=== PATIENT | male | born 1960 | race Caucasian/White ===

== ENCOUNTER 2018-01-02 11:45 | Inpatient (IN) | payer MEDICARE, OTHER ==
[2018-01-21] MEDS ORDERED: RINGER'S SOLUTION,LACTATED 1,000 ML IV PRN (06:00)
[2018-01-21] MEDS ORDERED: ceFAZolin SODIUM 1 GM VIAL IV PRN (06:00)
[2018-01-21] MEDS ORDERED: TRANEXAMIC ACID 1,000 MG in NORMAL SALINE 100 ML IV PRN (06:00)
[2018-01-21] MEDS ORDERED: ROPIVACAINE HCL/PF 100 MG, EPINEPHrine 0.2 MG, KETOROLAC TROMETHAMINE 30 MG in NORMAL S... IJ PRN (06:00)
[2018-01-21] MEDS ORDERED: MORPHINE SULFATE 15 MG TABLET.SA PO PRN (06:00)
[2018-01-21] MEDS: RINGER'S SOLUTION,LACTATED 1,000 ML IV PRN ×3 (08:45→16:29)
--- NOTE | 2018-01-21 09:39 | ANES ---
Anesthesia Pre Procedure Eval Vitals/Labs: Last Vital Signs Temp 36.1 C 01/21/18 08:30 Pulse 89 01/21/18 08:30 Resp 16 01/21/18 08:30 BP 139/83 01/21/18 08:30 Pulse Ox 94 01/21/18 08:30 HOME MEDICATIONS gabapentin 300 mg capsule 300 mg PO TID cap 12/25/17 [Last Taken Unknown] levothyroxine 125 mcg capsule 125 mcg PO DAILY 12/25/17 [Last Taken Unknown] metformin 850 mg tablet 850 mg PO BID 12/25/17 [Last Taken Unknown] tamsulosin 0.4 mg capsule 0.4 mg PO DAILY 12/25/17 [Last Taken Unknown] Allergies/Adverse Reactions: Allergies Allergy/AdvReac Type Severity Reaction Status Date / Time No Known Allergies Allergy Verified 01/21/18 08:40 - Planned Procedure Planned Procedure: Left Total Hip Arthroplasty Medication List Reviewed:: Yes Allergies Verified: Yes Medical History (Last Reviewed 01/21/18 @ 09:38 by Jose Alberto Aguero CRNA) Diabetes (Chronic) Hypothyroidism Anxiety Onset Date: Unknown Arthritis Onset Date: Unknown Diabetes Onset Date: Unknown Fracture Onset Date: Unknown H/O total hip arthroplasty Onset Date: ~11/2003 Joint pain Onset Date: Unknown Pain Onset Date: Unknown Rheumatoid arthritis Onset Date: Unknown Surgical History (Last Reviewed 01/21/18 @ 09:38 by Jose Alberto Aguero CRNA) H/O colonoscopy Onset Date: Unknown H/O hernia repair Onset Date: ~2012 History of lung surgery Onset Date: ~2015 Family History (Last Reviewed 01/21/18 @ 09:38 by Jose Alberto Aguero CRNA) Daughter Alive and well Father No problems noted. Mother Alive and well Sister Alive and well Sister No problems noted. - Family Anesthesia History Family History:: no untoward family reactions to anesthesia, no familial bleeding tendencies, no family history of clotting disorders, no family history of premature - Airway/Neck/Teeth Within Normal Limits:: Yes Denture Type: Full- Upper Mallampatti Score: 2 Thyromental (T-M) distance: > 6 cm Mandibulo Hyoid distance: > 3 cm - Respiratory Respiratory: lungs clear Smoking Status: Current every day smoker Discussed smoking cessation including day of surgery: Yes Sleep Apnea currently treated: No Sleep Apnea by current assessment: No Discussed Risks/Treatment of ASIA: No - Cardiovascular Tolerates Activity: Good Heart Sounds: S1 & S2, Regular - Anesthesia Assessment and Plan ASA Class: PS, II Anesthesia Type Plan: Spinal
[2018-01-21] MEDS ORDERED: ONDANSETRON HCL/PF 2 MG/ML VIAL IV PRN (12:02)
[2018-01-21] MEDS ORDERED: MORPHINE SULFATE 2 MG/ML DISP.SYRIN IV PRN (12:02)
[2018-01-21] MEDS ORDERED: MAG HYDROX/ALUMINUM HYD/SIMETH 30 ML UDC PO PRN (12:02)
[2018-01-21] MEDS ORDERED: ZOLPIDEM TARTRATE 5 MG TABLET PO PRN (12:02)
[2018-01-21] MEDS ORDERED: diphenhydrAMINE HCL 50 MG/ML VIAL IV PRN (12:02)
[2018-01-21] MEDS ORDERED: ACETAMINOPHEN 500 MG TABLET PO PRN (12:02)
[2018-01-21] MEDS ORDERED: MAGNESIUM HYDROXIDE 30 ML UDC PO PRN (12:02)
--- NOTE | 2018-01-21 12:02 | OR ---
Operative Report - Dictated Report Narrative: Date: 01/21/2018 Preoperative diagnosis: Left hip degenerative joint disease. Postoperative diagnosis: Left hip degenerative joint disease. Procedure: Left Total hip arthroplasty. Surgeon: Jony Drummond M.D. [place] Luggage: Parish Martin PA-C Anesthesia: Spinal and local periarticular joint injection. Complications: None Specimens: Bone for disposal. Estimated blood loss: 200 milliliters. Retained implants: Depuy [place] size 5 femoral stem standard offset. Size 60 millimeter outside diameter 3-hole [place] Gription acetabular cup. 60 millimeter outside by 40 millimeter inside diameter highly cross-linked acetabular liner. 40 millimeter diameter +5 millimeter ceramic femoral head. Cancellous 6.5mm screw 35 millimeter length Indications: Mr. Au is a 57-year-old gentleman who has had long-standing left hip pain and arthrosis. This patient was followed in my clinic for period of time with significant complaints of left hip pain consistent with arthritic changes. He failed conservative measures including but not limited to activity modification, passage of time, medications, and other conservative measures. Patient wished to proceed with surgical treatment. The risks, benefits, and alternatives were discussed in clinic. The risks of , blood clots, bleeding, infection, nerve/tendon blood vessel/ injury, malposition of components, dislocation and/or instability of joint, intraoperative fracture, postoperative limited range of motion, persistent pain, failure of components, and need for additional procedures. Patient wished to proceed. Consent was obtained after answering all questions. Procedure: After marking the correct extremity on the floor, the patient was taken to the operating room. A timeout was performed. IV antibiotics consisting of Ancef were administered prior to the procedure. A spinal anesthetic was induced by anesthesia. A Gong catheter was inserted. The patient was then transitioned to a lateral position on a well-padded pegboard. An axillary roll was placed. The head was in neutral position. The non- operative down leg was well-padded with SCD and FERNANDO hose in place. The arms were supported and padded to protect from any undue pressure on the bony prominences and nerves. A well-padded anterior and posterior pelvic and chest posts were secured in order to maintain a stable position of the pelvis. This was placed so that the pelvis was perpendicular to the floor. The body was in line with the pelvis. Once it was felt that we had protected all the bony prominences and the patient was well secured with a safety belt as well, the leg was pre-scrubbed with alcohol, prepped and draped in a standard sterile fashion. A standard anterior lateral hip incision was marked out over the greater trochanter. Ioban drapes were then placed. The skin incision was then made. Sharp dissection with a scalpel utilizing cautery for hemostasis was carried out down to the gluteus and iliotibial band fascia. This was split in line with the skin incision. The greater trochanter bursa was excised. The anterior and posterior margins of the abductor tendon were identified. The anterior 1/2-1/3 of the tendon was tagged and reflected off the greater trochanter leaving a sleeve of tendon for repair at the completion of the case. This exposed the underlying hip joint capsule. A limb length stitch was placed in the skin and referencedd off a lis on the greater trochanter for evaluation of intraoperative limb lengths. An inverted T-type capsulotomy was made extending this up to the brim of the acetabulum. Using Homans to assist with elevation of the soft tissues off the anterior, superior, and inferior aspects of the femoral neck, the hip was then placed in a figure 4 position and the femoral head was dislocated. With the leg in an externally rotated and adducted position, the cutting flag was utilized in order to lis for a standard femoral neck cut approximately a fingerbreadth above the level of the lesser trochanter. This was done with reference to pre-operative films and overall alignment. This was done while protecting the surrounding soft tissues with Homans. The femoral head was then removed and sized for guidance on preparation of the acetabulum. It was noted that there was loss of articular cartilage on both the femoral head and weightbearing portions of the acetabulum. We then returned the leg to the table and turned our attention to the acetabulum. While protecting the surrounding soft tissues, the labrum and remaining tissue in the fovea were excised using a scalpel and cautery. A series of reamers up to size 60 millimeter were utilized to prepare the acetabulum. The final reamer had good purchase and exposed the bleeding subchondral bone. The acetabulum was then thoroughly irrigated ensuring that all bony and cartilaginous materials were removed, and the final acetabular shell was impacted into place. This was placed in approximately 45 degrees of abduction and 20 degrees of anteversion utilizing the outrigger and body axis for alignment. This had a good press fit. 1 6.5mm cancellous screw was placed in the superior posterior quadrant of the acetabulum. The shell was then thoroughly irrigated and the final polyethylene was impacted into place ensuring that it seated completely. This was then protected with a sponge while we returned our attention to the femur. With the leg in a figure 4 position, utilizing Homans for soft tissue protection , a box cutting osteotome, followed by Charnley awl, followed by serial reamers and broaches were utilized in order to prepare the femur. It was found that a size 5 broach gave good axial and rotational stability. The calcar reamer was utilized in order to clean up the cut edges. The proximal femur was visualized to ensure that there were no signs of fracture. A series of heads and necks were trialed. It was found that a standard neck and a + 5 femoral head gave good overall stability. There was minimal longitudinal instability. With the leg in the position of sleep, the femoral head was well covered. Hip range of motion was able to reach full extension and external rotation to greater than 75 degrees prior to impingement along the posterior acetabulum. The hip was able to be flexed to greater than 90 degrees with internal rotation greater than 60 degrees prior to anterior impingement. The limb lengths were near equal based on comparison to the contralateral side and the prior placed limb length stitch. At this point it was felt these were the appropriately sized femoral components as well as neck and femoral head. The trial implants were removed. The femur was thoroughly irrigated. The final implants were impacted into place, and the hip was reduced. After ensuring that there was no damage to the proximal femur , the standard periarticular joint injection of ropivacaine, Toradol, and epinephrine were injected into the joint capsule and surrounding soft tissues. Anesthesia then administered intravenous tranexamic acid. The capsule was repaired with a single interrupted #1 Vicryl. The abductor tendon was repaired to the greater trochanter utilizing #5 Ethibond through drill holes. This was oversewn with #1 Vicryl. The fascia was closed with interrupted #1 Vicryl. The wounds were thoroughly irrigated as we closed in layers. The deep and subcutaneous fat layers were closed with 0 and 3-0 Vicryl respectively. The subcutaneous tissue was closed with a running 3-0 Vicryl and the skin with lory. All sponge, needle, blade, and instrument counts were correct prior to closing the wounds. Sterile dressings consisting of Xeroform, 4 x 4's, and tape were applied. The patient was awoken and transferred to her hospital bed and then to the postanesthesia care unit in stable condition. Postoperative condition: The plan is to admit to the medical/surgical inpatient floor postoperatively. There will be a projected 1 to 3 day hospital stay. Postoperatively 24 hours of IV antibiotics, pain control, physical therapy, occupational therapy, and medical comanagement will be utilized. Patient will be weightbearing as tolerated with anterior hip precautions. Postoperative films will be obtained in the recovery room.
--- NOTE | 2018-01-21 12:16 | ANES ---
Post Anesthesia Discharge - Transfer of Care Transfer of Care handoff given to nurse: Yes - Discharge from PACU Discharge from PACU when meets criteria: Yes - Discharge to ASU Discharge to ASU-no complications/pt stable: Yes
[2018-01-21] MEDS: GABAPENTIN 300 MG CAPSULE PO SCH ×2 (15:41→17:39)
[2018-01-21] MEDS: KETOROLAC TROMETHAMINE 15 MG/ML VIAL IV SCH ×2 (15:41→18:51)
[2018-01-21] MEDS: ceFAZolin SODIUM 1 GM in DEXTROSE 5 % IN WATER 100 ML IV SCH ×4 (15:41→20:23)
[2018-01-21] MEDS: TAMSULOSIN HCL 0.4 MG CAP.SR.24H PO SCH (17:39)
[2018-01-21] MEDS: oxyCODONE HCL/ACETAMINOPHEN 1 TAB TABLET PO PRN (18:56)
[2018-01-21] MEDS: MORPHINE SULFATE 15 MG TABLET.SA PO SCH (20:25)
[2018-01-21] MEDS ORDERED: SENNOSIDES/DOCUSATE SODIUM 1 TAB TABLET PO SCH (21:00)
[2018-01-22] MEDS: KETOROLAC TROMETHAMINE 15 MG/ML VIAL IV SCH ×3 (01:18→14:27)
[2018-01-22] MEDS: oxyCODONE HCL/ACETAMINOPHEN 1 TAB TABLET PO PRN ×3 (01:26→17:47)
[2018-01-22] MEDS: RINGER'S SOLUTION,LACTATED 1,000 ML IV PRN (02:01)
[2018-01-22] MEDS: ceFAZolin SODIUM 1 GM in DEXTROSE 5 % IN WATER 100 ML IV SCH ×2 (02:02)
[2018-01-22 05:32] LABS: Hematocrit 42.8 % (42.0-52.0); Hemoglobin 13.4 gm/dL (13.5-18.0); Mean Cell Volume 89.2 fl (78-100); Mean Corpuscular Hemoglobin 27.9 pg (27-31); Mean Corpuscular Hgb Conc 31.3 g/dl (32-36); Mean Platelet Volume 10.5 fl (8-11.3); Platelet Count 175 K/mm3 (150-450); White Blood Count 8.5 K/mm3 (4.0-10.5)
[2018-01-22 05:48] LABS: Anion Gap 12.2 mmol/L (6.8-13.8); BUN/Creatinine Ratio 25.6 (9.0-21.6); Estimated Creat Clear 100.6; Potassium 5.2 mmol/L (3.4-4.6)
[2018-01-22] MEDS ORDERED: LEVOTHYROXINE SODIUM 125 MCG TABLET PO SCH (07:00)
--- NOTE | 2018-01-22 08:17 | PN ---
Subjective - Date and Time Seen Date: 01/22/18 Time: 08:13 Subjective Narrative: Reports pain controlled in hip. Reports neuropathy in has feet and hands kept him up in night and did not sleep well. Has ate breakfast. No nausea or vomiting. No lighteadedness. Reports feels tired as didn't sleep well. Objective - Vitals Vitals: Last Vital Signs Temp 37 C 01/22/18 07:47 Pulse 68 01/22/18 07:47 Resp 18 01/22/18 02:47 BP 127/63 01/22/18 07:47 Pulse Ox 96 01/22/18 07:47 - Abnormal Lab Findings Abnormal Lab Findings: Abnormal Lab Results 01/22/18 01/22/18 Range/Units 05:00 05:25 Hgb 13.4 L (13.5-18.0) gm/dL MCHC 31.3 L (32-36) g/dl Potassium 5.2 H (3.4-4.6) mmol/L BUN/Creatinine Ratio 25.6 H (9.0-21.6) Random Glucose 178 H (70-110) mg/dL - Exam Exam Narrative: Bandages C/D/I. N/V intact PF/DF ankle. Calf supple. Constitutional: Present: Oriented x3, Cooperative, No distress, Somnolent Cauti Physician Documentation - Urinary Catheter Management Urethral (Gong) Date of Insertion: 01/21/18 Time of Insertion: 10:30 Assessment/Plan - Problems/Diagnosis (1) Status post total hip replacement, left Problem: Acute Narrative: PT, anticoagulation, pain control, recheck this afternoon for progress with PT and evaluate for discharge plan (2) Acute blood loss anemia Problem: Acute Narrative: asymptomatic, observation (3) Neuropathy Problem: Chronic (4) Hyperkalemia Problem: Acute Narrative: Oral fluids (5) Diabetes Problem: Chronic Qualifiers:
[2018-01-22] MEDS: GABAPENTIN 300 MG CAPSULE PO SCH ×3 (09:43→17:43)
[2018-01-22] MEDS: MORPHINE SULFATE 15 MG TABLET.SA PO SCH (09:43)
[2018-01-22] MEDS ORDERED: ENOXAPARIN SODIUM 40 MG/0.4 ML SYRG SC SCH (11:02)
--- NOTE | 2018-01-22 17:03 | DS ---
(1) Status post total hip replacement, left Problem: Acute (2) Acute blood loss anemia Problem: Acute (3) Neuropathy Problem: Chronic (4) Hyperkalemia Problem: Acute (5) Diabetes Problem: Chronic Qualifiers: Description of Stay: Mr. Au was admitted to the floor after undergoing left total hip arthroplasty. Tolerated this well. Was admitted to the floor postoperatively for 24 hours of IV antibiotics, pain control, medical comanagement, and occupational and physical therapy. OT and PT were consulted to assist with activities of daily living and ambulation. Was made weightbearing as tolerated with range of motion as tolerated. Pain was initially controlled with IV regimen. This was transitioned to oral once tolerating a by mouth intake. Was resumed on home diet and medications. Had a Gong catheter inserted and the operating room which was discontinued on postoperative day 1. Lovenox SCD and FERNANDO hose were utilized for DVT prophylaxis. Vital signs remained stable to the hospital course. Serial labs were obtained which showed a final hemoglobin of 13.4 grams. BMP was reviewed and was stable. Physical examination throughout the hospital course showed an extremity that had sensation that was intact to light touch, palpable pulses, a benign wound, motor intact to the toes, ankle, and knee. Once an oral pain regimen was tolerated and physical therapy goals were met, it was felt that they were stable for discharge to home. Instructions: Continue with weightbearing as tolerated and range of motion as tolerated with anterior hip precautions. Keep incision clean and dry until lory removed. If you note any drainage or for comfort you can cover with dry gauze and tape. Change every 2-3 days as needed. Continue with physical therapy. Resume home diet. Report any fever over 101.5 Fahrenheit, uncontrolled pain, increased drainage, foul odor of drainage, new or increased calf pain or shortness of breath, or any other significant complaints. A 325mg dialy aspirin will be started after finishing anticoagulation if not allergic. Continue with FERNANDO hose on the operative extremity until instructed otherwise. No driving until instructed otherwise. Follow up in approximately 10-14 days. Procedures Performed: see notes below List Procedures: Left total hip arthroplasty Results and Findings: Lab Pending Results 01/22/18 05:00: WBC 8.5, RBC 4.80, Hgb 13.4 L, Hct 42.8, MCV 89.2, MCH 27.9, MCHC 31.3 L, RDW 14.0, Plt Count 175, MPV 10.5 01/22/18 05:25: Sodium 134, Plasma Sodium 135, Potassium 5.2 H, Chloride 100, Carbon Dioxide 27.0, Anion Gap 12.2, BUN 23, Creatinine 0.90, Est GFR (Non-Af Amer) 92, BUN/Creatinine Ratio 25.6 H, Random Glucose 178 H, Calcium 8.0 Discharge Location: Home Disposition: Home self-care Condition: Good Discharge Activity: Activity as tolerated, Weight bearing - with anterior hip precautions Discharge Diet: Consistent carbs Additional Patient Instructions (free text): Outpatient Physical Therapy at [facility] in [place] on 01/24 at 2: 00pm, please fax order to [phone] Follow up with Orthopedic Dr. Drummond Monday 02/05 at 11:00am. Prescriptions (Any new or edited meds): Enoxaparin Sodium [Lovenox] 40 mg SC Q24H #7 disp.syrin Morphine Sulfate [Ms Contin] 15 mg PO Q12H #20 tablet.sa oxyCODONE HCL/ACETAMINOPHEN [Percocet 5 MG/325 MG] 2 tab PO Q4H PRN #90 tablet PRN Reason: Moderate Pain (Pain Scale 4-6) Sennosides/Docusate Sodium [Senokot-S] 2 tab PO HS #30 tab Complete Home Medications List: Complete Home Medication List: gabapentin 300 mg capsule 300 mg PO TID cap 12/25/17 levothyroxine 125 mcg capsule 125 mcg PO DAILY 12/25/17 metformin 850 mg tablet 850 mg PO BID 12/25/17 tamsulosin 0.4 mg capsule 0.4 mg PO DAILY 12/25/17 Enoxaparin Sodium [Lovenox] 40 mg SC Q24H #7 disp.syrin 01/22/18 Morphine Sulfate [Ms Contin] 15 mg PO Q12H #20 tablet.sa 01/22/18 Sennosides/Docusate Sodium [Senokot-S] 2 tab PO HS #30 tab 01/22/18 oxyCODONE HCL/ACETAMINOPHEN [Percocet 5 MG/325 MG] 2 tab PO Q4H PRN #90 tablet 01/22/18
[2018-01-22] MEDS: TAMSULOSIN HCL 0.4 MG CAP.SR.24H PO SCH (17:43)
[2018-01-22 20:51] VITALS: BP 98/54
== END 2018-01-22 20:10 | disposition home or self-care (01) | DRG 470 ==
LOC: MS 01-21 08:15
PROVIDERS: ADMIT Orthopaedic Surgery; ATTEND Orthopaedic Surgery
CPT/HCPCS: 36415; 73502; 80048; 85027; 97116; 97161; 97166